=== PATIENT | female | born 1960 | race Caucasian/White ===

== ENCOUNTER 2016-07-06 14:30 | Day surgery (SDC) | payer OTHER ==
[~2016-07-06] VITALS: Ht 154.9 cm; Wt 108.6 kg
[~2016-07-06 14:30] MED LIST: ASPI-664 PO; IBUP-1542 PO; LEVO75TA5 PO; LISI40TA9 PO; OMEP40CA6 PO; OXYB5TAB7 PO; PRAV40TA76 PO; SITA100T8 PO
[2016-07-06 16:14] VITALS: Ht 154.9 cm; Wt 108.6 kg
[2016-07-06] MEDS ORDERED: PROPOFOL 60 ML ONE (16:39)
[2016-07-06] MEDS ORDERED: FENTAnyl 50 MCG/ML VIAL ONE (16:39)
[2016-07-06] MEDS ORDERED: LIDOCAINE 100 MG SYRINGE ONE (16:39)
[2016-07-06 16:48] VITALS: BP 116/51; PULSE 57; RESP 18
[2016-07-06] MEDS ORDERED: GLYCOPYRROLATE 0.4 MG INJ ONE ×3 (16:57→16:58)
[2016-07-06] MEDS ORDERED: ATROPINE 1 MG INJ ONE (16:57)
[2016-07-06] MEDS ORDERED: DICLOFENAC PO (17:10)
[2016-07-06] MEDS ORDERED: LANTUS SUBCUTANE (17:10)
[2016-07-06 17:49] VITALS: BP 131/65; PULSE 83; RESP 16
--- NOTE | 2016-07-07 04:13 | GILP ---
DATE OF PROCEDURE: 07/06/2016 NAME OF PROCEDURES: 1. Esophagogastroduodenoscopy and biopsy. 2. Colonoscopy. SURGEON: Liza Araujo MD PREOPERATIVE DIAGNOSES: 1. Abdominal pain. 2. Chronic heartburn. 3. Screening colonoscopy. POSTOPERATIVE DIAGNOSES: 1. Bile reflux gastritis. 2. Gastroesophageal reflux disease. 3. Gastric mucosal biopsies were taken for Helicobacter pylori test. 4. Colonoscopy all the way to the cecum. 5. Poor prep making the exam suboptimal. 6. Internal hemorrhoids. INDICATION FOR THE PROCEDURE: Ms. Renita Oconnor is a 56-year-old female patient who had upper ab dominal pain and chronic heartburn, not responding to therapy. She also needed screening colonoscop y. The procedures and possible complications are well explained to the patient. The patient understood and consented to the procedure. DESCRIPTION OF PROCEDURE: Under the influence of anesthesia, the gastroscope was carefully introduc ed into the esophagus, and under direct vision, it was advanced to the stomach and through the pylor us into the duodenal bulb and descending duodenum. FINDINGS: ESOPHAGUS: The patient had gastroesophageal reflux disease. STOMACH: She had bile reflux gastritis. Gastric mucosal biopsies were taken for H. pylori test. DUODENUM: Normal. The colonoscope was carefully introduced in the rectum, and under direct vision, it was advanced all the way to the cecum. FINDINGS: The patient had poor prep making the exam suboptimal. The patient was noted to have inte rnal hemorrhoids. No gross neoplasm was identified. The patient tolerated the procedures very well, and there was no complication from the procedures. At the end of the procedures, she was awake with stable vital signs, and she was discharged home to the care of her family. IMPRESSION: 1. Gastroesophageal reflux disease. 2. Bile reflux gastritis. 3. Gastric mucosal biopsies were taken for Helicobacter pylori test. 4. Colonoscopy all the way to the cecum. 5. Poor prep making the exam suboptimal. 6. Internal hemorrhoids. PLAN: 1. Continue omeprazole. 2. Add Carafate 1 g p.o. t.i.d. a.c. 3. Await histopathology reports. 4. Because of the poor prep and suboptimal nature of the examination, would recommend repeat colono scopy in 1 to 2 years. Dictated By: LIZA CHRISTIANSEN/TATI Conf#: [id number] [facility]#: [id number]
== END 2016-07-06 18:02 | disposition home or self-care (01) ==
LOC: GIL 14:30
PROVIDERS: ATTEND Internal Medicine Gastroenterology
DX: Z12.11 Encounter for screening for malignant neoplasm of colon (principal); K21.9 Gastro-esophageal reflux disease without esophagitis; K29.60 Other gastritis without bleeding; K64.8 Other hemorrhoids; E11.9 Type 2 diabetes mellitus without complications; J44.9 Chronic obstructive pulmonary disease, unspecified; I25.10 Atherosclerotic heart disease of native coronary artery without angina pectoris; Z98.61 Coronary angioplasty status
CPT/HCPCS: 43239; 45378; 82962; 87081; J2001; J3010; Z7610; J0461

== ENCOUNTER 2018-01-13 08:44 | Observation (INO) | END 2018-01-14 18:30 | disposition home or self-care (01) ==